=== PATIENT | male | born 1990 | race Caucasian/White ===

== ENCOUNTER 2020-11-25 03:27 | Emergency (ER) | payer OTHER ==
[2020-11-25 03:47] VITALS: BP 148/92; PULSE 74; TEMP 98.1; BMI 34.0
[2020-11-25 04:36] LABS: CALCIUM 9.3 mg/dL (8.5-10.1); CHLORIDE 106 mmol/L (98-107); POTASSIUM 4.2 mmol/L (3.5-5.1); SODIUM 141 mmol/L (136-145)
[2020-11-25 04:37] LABS: ALBUMIN 4.4 g/dl (3.4-5.0); ANION GAP 7 MMOL/L (8-16); BLOOD UREA NITROGEN 17.6 mg/dL (7-18); CO2 28 mmol/L (21-32); GLUCOSE,RANDOM 106 mg/dL (74-106)
[2020-11-25 04:41] LABS: SGOT/AST 29 U/L (15-37); SGPT/ALT 91 U/L (13-61)
[2020-11-25 04:41] LABS: BASO % 0.8 % (0-2.0); EOS % 2.6 % (0-4.5); HEMOGLOBIN 16.1 GM/dL (11.7-16.9); LYMPH % 34.4 % (8-40); MCH 30.5 pg (25.7-33.7); MCHC 35.9 g/dl (32.0-35.9); MEAN PLT VOLUME 7.5 fl (7.5-11.1); MONO % 7.4 % (3.8-10.2); NEUT % 54.8 % (42.8-82.8); PLATELET COUNT 250 K/MM3 (134-434); RBC 5.29 M/mm3 (4.00-5.60); RDW 12.3 % (11.9-15.9)
[2020-11-25 04:42] LABS: BILIRUBIN,TOTAL 1.2 mg/dL (0.2-1); TOT PROT 7.4 g/dl (6.4-8.2)
[2020-11-25 04:44] LABS: ALK PHOS 76 U/L (45-117)
== END 2020-11-25 05:23 | disposition home or self-care (01) ==
LOC: JER 03:27
DX: R07.89 Other chest pain (principal)
CPT/HCPCS: 36415; 71045-TC-FY; 80053; 82550; 82553; 84484; 85025; 85379; 93005; 93010; 99285-25

== ENCOUNTER 2021-12-26 19:26 | Emergency (ER) | payer OTHER ==
[2021-12-26 19:31] VITALS: BP 113/69; PULSE 70; TEMP 98.6; BMI 32.1
== END 2021-12-26 21:37 | disposition home or self-care (01) ==
LOC: JER 19:26
PROC: 3E023GC Introduction of Other Therapeutic Substance into Muscle, Percutaneous Approach (ICD-10-PCS; principal; 2021-12-26)
DX: N45.2 Orchitis (principal)
CPT/HCPCS: 36415; 76870-TC; 87491; 87591; 99284-25